=== PATIENT | male | born 1995 | race Caucasian/White ===

== ENCOUNTER 2022-06-10 20:06 | Emergency (ER) | payer OTHER, SELFPAY ==
[2022-06-10 20:23] VITALS: BP 127/77; PULSE 95; RESP 16; TEMP 36.6; O2SAT 97; BMI 30.8
--- NOTE | 2022-06-10 22:37 | ED.RECABL ---
HPI - Recheck/Abnormal Lab/Rx General Chief Complaint: Recheck/Abnormal Lab/Rx Stated Complaint: Rash all over body, Out of meds Time Seen by Provider: 06/10/22 22:37 Source: patient Mode of arrival: Ambulatory Limitations: no limitations History of Present Illness HPI narrative: This is a 26-year-old male with diagnosed celiac disease with history of dermatitis herpetiformis, hypertension, depression anxiety who presents with complaint of worsening rash. Patient states that he is had [facility] is [facility] this by [facility] about the pharmacy has had it on back order. He ran out of medications last Monday, proximally week ago. Since then his rash has been worsening it is become quite intense it is very itchy and painful. He denies fevers or chills. No chest pain, no shortness of breath, no abdominal pain, no nausea or vomiting, no black or bloody stools, diarrhea constipation. He is not having any urinary changes. The rashes continued to spread in his typical of the rash that he has had in the past. He states typically when he is on his dapsone with when 1 or 2 doses the rash is significantly or almost nearly resolved. He has tried Benadryl and hydroxyzine but gets bad nightmares with these so he has been avoiding them. It is become quite painful this evening and he is had trouble sleeping the last 2 nights and presents with assistance. He does have his prescription bottle with and takes dapsone 100 mg daily. Related Data Home Medications Medication Instructions Recorded Confirmed Atarax 25 mg PRN Sleep 06/10/22 Protonix 40 mg DAILY 06/10/22 06/10/22 Prozac 06/10/22 Zyrtec 10 DAILY 06/10/22 amlodipine 5 mg DAILY 06/10/22 06/10/22 bupropion HCl 06/10/22 dapsone 100 mg DAILY 06/10/22 06/10/22 Previous Rx's Medication Instructions Recorded dapsone 100 mg tablet 100 mg PO DAILY #30 tabs 06/10/22 hydrocodone 5 mg-acetaminophen 325 1 tab PO QID PRN pain #7 tabs 06/10/22 mg tablet prednisone 10 mg tablets in a dose See Rx Instructions .Route 06/10/22 pack .COMPLEX #15 ea Allergies Allergy/AdvReac Type Severity Reaction Status Date / Time No Known Drug Allergies Allergy Verified 06/10/22 20:27 Review of Systems Review of Systems ROS Unobtainable: All systems reviewed & are unremarkable except as noted in HPI and below Exam Narrative Exam Narrative: GENERAL: Alert and oriented x three, male in mild distress. HEENT: Head normocephalic, atraumatic, EOMI, pupils reactive, face symmetric, moist mucous membranes NECK: Supple, full range of motion CARDIOVASCULAR: Regular rate and rhythm without murmurs, rubs or gallops. RESPIRATORY: Breath sounds equal bilaterally, no wheezes rales or rhonchi. ABDOMEN: Soft, nontender. Normoactive bowel sounds all 4 quadrants. No guarding or rebound, rigidity, no mass : No CVA tenderness EXTREMITIES: Normal range of motion, no clubbing or edema. Neurovascularly intact NEUROLOGICAL: Cranial nerves II through XII grossly intact. Moving all extremities SKIN: Warm, dry, no petechiae, patient has patchy, small clusters of papular lesions with some of them having small amounts of erythema, occasionally vesicles. Patient does have some excoriation rash is distributed across face, upper torso and extremities and legs. Initial Vital Signs Initial Vital Signs: Vital Signs Temperature 97.9 F 06/10/22 20:23 Pulse Rate 95 H 06/10/22 20:23 Respiratory Rate 16 06/10/22 20:23 Blood Pressure 127/77 06/10/22 20:23 Pulse Oximetry 97 06/10/22 20:23 Oxygen Delivery Method Room Air 06/10/22 20:23 Course Orders Ordered: Discontinued Medications Hydrocodone Bitart/Acetaminophen (Hydrocodone/Acet 5/325 Prepack) 1 bottle MISC SEEINSTR ONE Stop: 06/10/22 22:57 Last Admin: 06/10/22 23:03 Dose: 1 bottle Documented By: BEATRIZ Prednisone (Prednisone 20 Mg Tablet) 60 mg PO NOW ONE Stop: 06/10/22 22:57 Last Admin: 06/10/22 23:03 Dose: 60 mg Documented By: BEATRIZ Vital Signs Vital signs: Vital Signs - 8 hr 06/10/22 23:01 06/10/22 23:09 Pulse Rate 85 78 Respiratory Rate 20 16 Blood Pressure 145/73 H 138/71 Pulse Oximetry 99 100 Oxygen Delivery Method Room Air Room Air MDM - Recheck/Abnormal Lab/Rx MDM Narrative Medical decision making narrative: This is a 26-year-old male who presents with complaint of persistent rash, patient has a history of dermatitis herpetiformis states he was diagnosed with celiac by the DC, he has been on dapsone but there has been issues with being able to fill the medication that has been on back order he would a short-term script for 10 tablets that ran out last Monday and he is not been able to get his new prescription [facility]. Patient has tried hydroxyzine and Benadryl for the itching but these give him nightmares. He states it is becoming increasingly painful. Has not had any fevers, toxic symptoms or other changes. Patient does present with his pill bottle. Discussed with patient will write for prescription he can try to different pharmacy to see if they can fill it. Tonight we will give a dose of prednisone with a short term prednisone script. Discharge Plan Departure Patient Disposition: Home Clinical Impression: Dermatitis herpetiformis Activity Restrictions/Additional Instructions: Please follow-up with your [facility] providers to continue your Dapsone. You can take prednisone until gone. You may take 1-2 tablets of Grethel every 6 hours as needed for pain. Prescription sent to [facility] in [place]. A prescription for your dapsone is printed. Please return for fevers, rapidly worsening symptoms, abdominal pain, vomiting, diarrhea, black or bloody stools or other new or concerning changes. Prescriptions: New dapsone 100 mg tablet 100 mg PO DAILY Qty: 30 0RF prednisone 10 mg tablets,dose pack See Rx Instructions .ROUTE .COMPLEX Qty: 15 0RF Rx Instructions: Please take 5 tablets p.o. x1 day, then 4 tablets p.o. x1 day, then 3 tablets p.o. x1 day, then 2 tablets p.o. x1 day, then 1 tablet p.o. x1 day hydrocodone-acetaminophen 5-325 mg tablet 1 tab PO QID PRN (Reason: pain) Qty: 7 0RF No Action Atarax 25 mg 25 mg PRN (Reason: Sleep) Protonix 40 mg 40 mg DAILY Prozac Zyrtec 10 mg 10 DAILY amlodipine 5 mg 5 mg DAILY bupropion HCl dapsone 100 mg 100 mg DAILY Stand Alone Forms: Patient Portal/API
[2022-06-10 23:01] VITALS: BP 145/73; PULSE 85; RESP 20; O2SAT 99
[2022-06-10] MEDS: predniSONE 20 MG TABLET 60 MG PO (23:03)
[2022-06-10] MEDS: HYDROCODONE/ACET 5/325 PREPACK 1 BOTTLE MISC (23:03)
[2022-06-10 23:09] VITALS: BP 138/71; PULSE 78; RESP 16; O2SAT 100
== END 2022-06-10 23:10 | disposition home or self-care (01) ==
PROVIDERS: Emergency Provider Emergency Medicine
DX: L13.0 Dermatitis herpetiformis (principal)
CPT/HCPCS: 99283

== ENCOUNTER 2024-06-15 17:53 | Emergency (ER) | payer OTHER, SELFPAY ==
[2024-06-15 18:00] VITALS: BP 159/89; PULSE 87; RESP 17; TEMP 36.8; O2SAT 98; BMI 32.5
--- NOTE | 2024-06-15 18:04 | DI.CT.S_ITS ---
PROCEDURE: CT TRAUMA CHEST ABDOMEN PELVIS INDICATIONS: trauma TECHNIQUE: MDCT axial chest images were obtained with IV contrast in the arterial phase. Maximum intensity projections and multiplanar reformats were obtained. MDCT axial abdomen and pelvis images were obtained with IV contrast in the portal venous phase. Multiplanar reformats were obtained. Optional delayed phase scanning may also be obtained Advanced techniques were used to lower patient radiation exposure. COMPARISON: [facility], CT, CT CERVICAL SPINE WO [facility], 06/15/2024, 18:12. [facility], CT, CT HEAD/BRAIN WO CON, 06/15/2024, 18:12. FINDINGS Image Quality: Diagnostic. Chest: Lungs and pleura: No pneumothorax or hemothorax. No pulmonary contusions or lacerations. No solid pulmonary nodule requiring follow-up. Vascular: No dissection or pseudoaneurysm. No incidental central pulmonary embolism. No hemopericardium. Mediastinum: No mediastinum hematoma. No suspicious mass or lymph nodes. No actionable thyroid nodules. Chest wall: Intact clavicles, scapula, and glenohumeral joint. No displaced rib fractures. Thoracic spine: No acute fracture or traumatic subluxation. ABDOMEN and PELVIS: Liver: No laceration or capsular hematoma. The liver is enlarged and demonstrates diffuse fatty infiltration. Gallbladder: Unremarkable. Biliary system: Non-dilated. Pancreas: Unremarkable. Spleen: No laceration or capsular hematoma. Adrenals: No suspicious nodules. Kidneys: No contrast extravasation or hydronephrosis. No solid masses. Vessels and lymph nodes: No pathology lymph nodes by size criteria. No dissection or aneurysm. No retroperitoneal hematoma. Bowel and peritoneum: No suspicious region of mesenteric hemorrhage or hemoperitoneum. No bowel obstruction. Pelvis: Unremarkable bladder. There is a mild fat containing right inguinal hernia. Pelvic ring and femurs: No pelvic ring disruption. No hip fractures. Lumbar spine: No acute fracture or traumatic subluxation. Focal L5-S1 degenerative change is seen. Abdominal wall: No drainable fluid collection or hematoma. IMPRESSION: Negative for liver or spleen laceration or hematoma. Additional findings: Enlarged, fatty infiltrated liver Early L5-S1 degenerative change Mild fat containing right inguinal hernia Dictated by: Pepe Maharaj M.D. on 06/15/2024 at 18:04 Approved by: Pepe Maharaj M.D. on 06/15/2024 at 18:07
--- NOTE | 2024-06-15 18:06 | DI.CT.S_ITS ---
PROCEDURE: CT HEAD/BRAIN WO CON INDICATIONS: Trauma TECHNIQUE: Noncontrast 5 mm thick angled axial sections acquired from the foramen magnum to the vertex, with coronal and sagittal reformats. For radiation dose reduction, the following was used: automated exposure control, adjustment of mA and/or kV according to patient size. COMPARISON: [facility], CT, CT CERVICAL SPINE WO CON, 06/15/2024, 18:12. [facility], CT, CT TRAUMA CHEST ABDOMEN PELVIS, 06/15/2024, 18:12. (Additional prior imaging is not available for review from the archive at the time of this dictation.) FINDINGS: Image quality: Streak artifact can be seen through the skull base. CSF spaces: Basal cisterns are patent. No extra-axial fluid collections. Ventricles are normal in size and shape. Brain: No midline shift. No intracranial mass effect or hemorrhage. John-white matter interface is normal. Skull and face: Calvarium and visualized facial bones are intact, without suspicious lesions. Sinuses: Visualized sinuses and mastoids are clear. IMPRESSION: No acute intracranial hemorrhage is seen. No acute intracranial pathology. Dictated by: Pepe Maharaj M.D. on 06/15/2024 at 17:50 Approved by: Pepe Maharaj M.D. on 06/15/2024 at 17:52
--- NOTE | 2024-06-15 18:06 | DI.CT.S_ITS ---
PROCEDURE: CT CERVICAL SPINE WO CON INDICATIONS: Trauma TECHNIQUE: Noncontrast 3 mm thick sections acquired from the skull base to the T4 level. Sagittal and coronal reformats were then constructed. For radiation dose reduction, the following was used: automated exposure control, adjustment of mA and/or kV according to patient size. COMPARISON: [facility], CT, CT HEAD/BRAIN WO CON, 06/15/2024, 18:12. [facility], CT, CT TRAUMA CHEST ABDOMEN PELVIS, 06/15/2024, 18:12. FINDINGS: Image quality: This examination is somewhat limited by quantum mottle artifact. Bones: No fractures or dislocations. Visualized superior ribs are intact. Soft tissues: Prevertebral soft tissues are normal in thickness. No paravertebral hematomas. No apical pneumothoraces. IMPRESSION: No displaced fracture or traumatic subluxation. Dictated by: Pepe Maharaj M.D. on 06/15/2024 at 17:52 Approved by: Pepe Maharaj M.D. on 06/15/2024 at 17:53
[2024-06-15 18:21] VITALS: BP 135/78; PULSE 85; RESP 19; TEMP 37; O2SAT 99
[2024-06-15 18:24] LABS: Add Manual Diff / Slide Review NO; Basophils Absolute Auto 0 /uL (0-100); Basophils Percent Auto 0.3 % (0-2); Eosinophils Absolute Auto 200 /uL (0-450); Eosinophils Percent Auto 1.3 % (2-4); Hematocrit 44.6 % (41-53); Hemoglobin 15.2 g/dL (13.5-17.5); Lymphocytes Absolute Auto 1700 /uL (1100-4500); Lymphocytes Percent Auto 13.1 % (25-40); Mean Corpuscular Hemoglobin 33.7 PG (26-34); Monocytes Absolute Auto 1200 /uL (0-900); Monocytes Percent Auto 8.9 % (3-14); Neutrophils Absolute Auto 10000 /uL (1500-7000); Neutrophils Percent Auto 76.4 % (50-75); Platelet Count 264 X10^3/uL (150-400); Red Cell Distribution Width 12.1 % (11.6-14.8)
[2024-06-15] MEDS: HYDROMORPHONE 1 MG INJ IV (18:30)
[2024-06-15] MEDS: ONDANSETRON 4 MG/2 ML INJ IV (18:30)
[2024-06-15] MEDS: TET,DIPH,PERTUSS(ACELL),VAC/PF 0.5 ML SYRINGE IM (18:31)
[2024-06-15] MEDS: SODIUM CHLORIDE 0.9% 500 ML 1000 ML IV (18:33)
[2024-06-15 18:35] LABS: Alanine Aminotransferase 207 IU/L (<50); Albumin 5.4 g/dL (3.5-5.0); Albumin Globulin Ratio 1.5 (1.0-2.8); Alkaline Phosphatase 106 U/L (38-126); Aspartate Aminotransferase 180 IU/L (17-59); BUN Creatinine Ratio 16.7 (6-22); Bilirubin Total 1.6 mg/dL (0.2-1.3); Blood Urea Nitrogen 19 mg/dL (9-20); Calcium 10.1 mg/dL (8.4-10.2); Carbon Dioxide 25 mmol/L (22-32); Chloride 102 mmol/L (98-107); Estimated Glomerular Filt Rate > 60 mL/min (>60); Ethanol (ETOH) < 10 mg/dL; Globulin 3.5 g/dL (1.7-4.1); Glucose 107 mg/dL (70-100); HEMOLYSIS < 15 (0-50); Potassium 3.8 mmol/L (3.4-5.1); Sodium 139 mmol/L (137-145); Total Protein 8.9 g/dL (6.3-8.2)
--- NOTE | 2024-06-15 18:39 | ED_ITS ---
HPI - General Adult General Chief complaint: Trauma Stated complaint: arm injury, attending anesthesiologist fell on his arm Time Seen by Provider: 06/15/24 18:04 Source: patient Mode of arrival: Ambulatory History of Present Illness HPI narrative: 28-year-old gentleman with a history of hypertension, depression was trying to load his attending anesthesiologist into the back of his truck. When pushing it up it fell off the ramp landing on him. He tried another approach and it fell off the other side of the ramp landing on him yet again. He presents complaining of elbow pain on the left side he was able to completely extend it. There was a small laceration that is superficial and not intra-articular concerning. He is neurovascularly intact. Complains of mid abdominal pain with a bruising and contusion area the lower left flank. Tender along the lower lumbar area. Lungs are clear minor tenderness with compression of ribs. There was no loss of consciousness, no nausea, vomiting, dyspnea, headache he is otherwise alert and appropriate Related Data Home Medications Medication Instructions Recorded Confirmed Atarax 25 mg PRN Sleep 06/10/22 amlodipine 5 mg tablet 5 mg PO DAILY 06/15/24 06/15/24 bupropion HCl 100 mg tablet,12 hr mg PO DAILY 06/15/24 sustained-release (Wellbutrin SR) cetirizine 10 mg tablet 10 mg PO DAILY 06/15/24 06/15/24 fluoxetine 20 mg tablet mg PO DAILY 06/15/24 pantoprazole 40 mg tablet,delayed 40 mg PO DAILY 06/15/24 06/15/24 release (Protonix) Previous Rx's Medication Instructions Recorded dapsone 100 mg tablet 100 mg PO DAILY #30 tabs 06/10/22 Allergies Allergy/AdvReac Type Severity Reaction Status Date / Time No Known Drug Allergies Allergy Verified 06/15/24 18:21 Review of Systems Review of Systems Narrative: Pertinent positive and negative findings as per HPI Patient History Medical History Depression Hypertension Social History Smoking Status: Current some day smoker Smoking Status: Current some day smoker Exam Initial Vital Signs Initial Vital Signs: Vital Signs Temperature 98.2 F 06/15/24 18:00 Pulse Rate 87 06/15/24 18:00 Respiratory Rate 17 06/15/24 18:00 Blood Pressure 159/89 H 06/15/24 18:00 Pulse Oximetry 98 06/15/24 18:00 Oxygen Delivery Method Room Air 06/15/24 18:00 General: Healthy appearing, in no acute distress. Able to give a complete and coherent history. Well-nourished well-developed HEENT: Moist mucous membranes, normal sclera with reactive pupils, no head abrasions or contusions. Neck: No midline cervical spine tenderness Respiratory: Lungs are clear to auscultation, no wheezing no rales no rhonchi. Full and symmetrical air movement, no contusions, subcutaneous air or tenderness with compression of the ribcage. Cardiac: Regular rate and rhythm no murmurs no bruits Abdomen: Soft, tender along the lower abdomen with abrasion and contusion lower left flank. He does have some tenderness along the lower thoracic and lumbar spine to palpation without obvious bruising or contusion in that area. No rebound or guarding. Skin: Warm and dry, abrasion to the proximal forearm left side, just below the elbow with a shallow 1.5 cm laceration. Neurologic: Grossly neurologically intact with no obvious asymmetries or abnormalities Extremities: Abrasion to the left forearm able to fully extend the left elbow, neurovascularly intact all extremities Psych: Cooperative, appropriate insight and affect Procedures Laceration Repair Left elbow: Time of procedure: 20:47 Site: upper extremity Side (If applicable): left Size (cm): 2 Description: linear and contaminated Depth: simple, single layer Local Anesthetic: lidocaine 1% and with epi Amount of anesthesia used (mL): 3 Pre-repair: wound explored, irrigated extensively and deep structures intact Skin layer closed with: nylon Skin layer suture size: 3-0 Number of sutures: 1 Technique: horizontal mattress Course Orders Ordered: ED Orders 06/15/24 18:04 CT Trauma Chest Abdomen Pelvis Stat 06/15/24 18:06 CT cervical spine wo con Stat CT head/brain wo con Stat 06/15/24 18:10 Complete Blood Count AUTO DIFF Stat Comprehensive Metabolic Panel Stat Ethanol (ETOH) Stat 06/15/24 18:43 XR elbow LT min 3V Stat Discontinued Medications Bacitracin (Bacitracin Oint 0.9 Gm Pckt) 1 applic TOP NOW ONE Stop: 06/15/24 20:35 Last Admin: 06/15/24 20:37 Dose: 1 applic Documented By: CHANCE Diphtheria/Tetanus/Acell Pertussis (Tet,Diph,Pertuss(Acell),Vac/Pf 0.5 Ml Syringe) 0.5 ml IM .ONCE ONE Stop: 06/15/24 18:07 Last Admin: 06/15/24 18:31 Dose: 0.5 ml Documented By: Hydromorphone HCl (Hydromorphone 1 Mg Inj) 1 mg IV NOW ONE Stop: 06/15/24 18:05 Last Admin: 06/15/24 18:30 Dose: 1 mg Documented By: Sodium Chloride (Normal Saline 0.9%) 500 mls @ 1,000 mls/hr IV BOLUS ONE Stop: 06/15/24 18:42 Last Infusion: 06/15/24 19:10 Dose: Infused Documented By: Admin: 06/15/24 18:33 Dose: 1,000 mls/hr Documented By: Ondansetron HCl (Ondansetron 4 Mg/2 Ml Inj) 4 mg IV NOW ONE Stop: 06/15/24 18:05 Last Admin: 06/15/24 18:30 Dose: 4 mg Documented By: Vital Signs Vital signs: Vital Signs - 8 hr 06/15/24 18:00 Temperature 98.2 F Pulse Rate 87 Respiratory Rate 17 Blood Pressure 159/89 H Pulse Oximetry 98 Oxygen Delivery Method Room Air Medical Decision Making Lab Data 06/15/24 18:10 06/15/24 18:10 Labs: Lab Results 06/15/24 Range/Units 18:10 WBC 13.0 H (4.5-11.0) X10^3/uL RBC 4.50 (4.5-5.9) X10^6/uL Hgb 15.2 (13.5-17.5) g/dL Hct 44.6 (41-53) % MCV 99.0 (80-100) fL MCH 33.7 (26-34) PG MCHC 34.0 (30-36) % RDW 12.1 (11.6-14.8) % Plt Count 264 (150-400) X10^3/uL Neut % (Auto) 76.4 H (50-75) % Lymph % (Auto) 13.1 L (25-40) % Beadle % (Auto) 8.9 (3-14) % Eos % (Auto) 1.3 L (2-4) % Baso % (Auto) 0.3 (0-2) % Neut # (Auto) 58101 H (8217-6520) /uL Lymph # (Auto) 1700 (0121-2550) /uL Beadle # (Auto) 1200 H (0-900) /uL Eos # (Auto) 200 (0-450) /uL Baso # (Auto) 0 (0-100) /uL Sodium 139 (137-145) mmol/L Potassium 3.8 (3.4-5.1) mmol/L Chloride 102 (98-107) mmol/L Carbon Dioxide 25 (22-32) mmol/L BUN 19 (9-20) mg/dL Creatinine 1.14 (0.66-1.25) mg/dL Estimated GFR > 60 (>60) mL/min BUN/Creatinine Ratio 16.7 (6-22) Glucose 107 H (70-100) mg/dL Calcium 10.1 (8.4-10.2) mg/dL Total Bilirubin 1.6 H (0.2-1.3) mg/dL AST 180 H (17-59) IU/L ALT 207 H (<50) IU/L Alkaline Phosphatase 106 (38-126) U/L Total Protein 8.9 H (6.3-8.2) g/dL Albumin 5.4 H (3.5-5.0) g/dL Globulin 3.5 (1.7-4.1) g/dL Albumin/Globulin Ratio 1.5 (1.0-2.8) Ethyl Alcohol < 10 ( - 10) mg/dL [facility] Narrative Medical decision making narrative: CC: Standby trauma called, rd ramos fell off a ramp landing on his lower abdomen and torso 2 times today Complicating co-morbidities: Poor planning when loading his rd ramos into his truck, hypertension, depression, reflux Data collected from: patient Differential considered: Left elbow or forearm fracture, thoracic injury from blunt trauma, pelvic and lower abdominal injury from blunt trauma, solid organ trauma Exam documented above, pertinent findings include: Patient was alert and appropriate and able to laugh about his to ?attending anesthesiologist attacks? today. No obvious abnormalities to the thorax slightly tender without bruising. No respiratory distress. Tender along the lower abdomen with moderate bruising to the left flank concerning for intra-abdominal injury and bleeding. No lower extremity injury. No head or neck injury Lab Test results independently reviewed as above. Pertinent findings: CBC shows mild leukocytosis at 13.0 minimal left shift, no anemia Chemistries show normal renal function. Bilirubin is slightly elevated at 1.6, AST at 180 ALT at 207 -no labs are available for comparison Alcohol level is undetectable Imaging studies independently reviewed: CT scan of the head is unremarkable CT scan of the cervical spine is unremarkable CT chest abdomen and pelvis is unremarkable specifically no spleen or liver laceration Elbow x-ray is reassuringly normal Treatments: Parenteral Toradol, Zofran, Tdap is updated, 1 L of saline . At time of discharge, he is given a dose of Toradol and a single Percocet Discussion: 28-year-old young man who had a heavy long more land on him twice today. He has an abrasion small laceration just under the left elbow. Laceration is repaired with single horizontal mattress suture. CT scans show no evidence of fractures, internal injury. The large flank contusion on the left is superficial, there was no evidence of splenic laceration. We did discuss his elevated liver enzymes. He is aware that he has a fatty liver and was aware that liver enzymes were elevated. This led to a discussion of primary care issues such as actually a dressing his blood pressure and make sure he is taking medications, following up with his primary care physician and looking at diet and exercise changes that are causing fatty liver the age of 28. Compelling reasons to consider taking care of himself sooner rather than later were discussed in detail. Encouraged him to follow up with his [facility] doctor, there is a new clinic that has open in [place]. Discussed pain management. Anticipate that he is going to hurt more over the next 36 hours. Ibuprofen and Tylenol are recommended, he is given a small prescription for Percocet to augment this along with instructions on avoiding constipation and awareness of addiction. There was no indication for further workup or hospitalization and he is safe for discharge Discharge Plan Departure Patient Disposition: Home Clinical Impression: Contusion of left flank Elbow laceration Qualifiers: Encounter type: initial encounter Laterality: left Qualified Code(s): S51.012A - Laceration without foreign body of left elbow, initial encounter Activity Restrictions/Additional Instructions: Thank you for coming in today CT scans did not show any bony injury or internal bleeding. You are going to be sore over the next couple of days. Making sure that you do get up and move around actually does help significantly in getting you to feeling better faster Using 400 mg of ibuprofen (2 [id number] pills) and 1 Tylenol every 6 hours can be very helpful in controlling pain. For severe pain you can use to ibuprofen and 1 Percocet. Percocet is a narcotic, we will cause constipation so make sure that you are taking a stool softener and use sparingly as needed The small laceration on your left elbow we will need to have the stitch removed on or about June 25. Please keep a small dressing over this to avoid irritating it or introducing infection Your lab work did show elevated liver enzymes and you said you are aware of fatty liver diagnosis. Your blood pressure was elevated throughout your emergency room stay. Paying attention to chronic medical problems at this stage in your life is going to lead to dramatic benefits to you as you age. I would strongly recommend you talk to your doctor about your blood pressure, metabolic status discussion of fatty liver and overall health. If you find that you are getting worse or develop any new symptoms, please feel free to return to the emergency department for further evaluation. Prescriptions: No Action Atarax 25 mg 25 mg PRN (Reason: Sleep) dapsone 100 mg tablet 100 mg PO DAILY Qty: 30 0RF cetirizine 10 mg Tablet 10 mg PO DAILY amlodipine 5 mg Tablet 5 mg PO DAILY bupropion HCl [Wellbutrin SR] 100 mg Tablet Sustained-Release 12 Hr PO DAILY pantoprazole [Protonix] 40 mg Tablet,Delayed Release (Dr/Ec) 40 mg PO DAILY fluoxetine 20 mg Tablet PO DAILY Referrals: Miscellaneous,Doctor, MD [Primary Care Provider] - Stand Alone Forms: Patient Portal/API/Survey
--- NOTE | 2024-06-15 18:43 | DI.RAD.S_ITS ---
PROCEDURE: XR ELBOW LT MIN 3V INDICATIONS: Pain to left elbow TECHNIQUE: 3 views of the elbow were acquired. COMPARISON: [facility], CT, CT HEAD/BRAIN WO [facility], 06/15/2024, 18:12. [facility], CT, CT TRAUMA CHEST ABDOMEN PELVIS, 06/15/2024, 18:12. [facility], CT, CT CERVICAL SPINE WO [facility], 06/15/2024, 18:12. FINDINGS: Bones: No fractures or dislocations. No suspicious bony lesions. Soft tissues: No elbow joint effusion. Proximal forearm soft tissue irregularity and soft tissue gas can be seen. No radiopaque foreign bodies are seen. IMPRESSION: No displaced fracture or joint effusion seen on this plain film study. Mild soft tissue irregularity seen, consistent with soft tissue laceration. No radiopaque foreign body is seen. Dictated by: Pepe Maharaj M.D. on 06/15/2024 at 18:46 Approved by: Pepe Maharaj M.D. on 06/15/2024 at 18:47
--- NOTE | 2024-06-15 19:13 | PC.NURSE ---
Laceration to left elbow cleansed. Pt tolerated well.
[2024-06-15 20:30] VITALS: BP 149/78; PULSE 98; RESP 18; O2SAT 95
[2024-06-15] MEDS: BACITRACIN OINT 0.9 GM PCKT 1 APPLIC TOP (20:37)
[2024-06-15] MEDS: KETOROLAC 30 MG/ML VIAL 15 MG IV (20:50)
[2024-06-15] MEDS: OXYCODONE/APAP 5/325 PREPACK 1 BOTTLE MISC (20:51)
[2024-06-15] MEDS: OXYCODONE/ACETAMINOPHEN 5/325 TABLET 1 TAB PO (20:51)
== END 2024-06-15 20:55 | disposition home or self-care (01) ==
PROVIDERS: Emergency Medicine; Emergency Provider Emergency Medicine
DX: S30.1XXA Contusion of abdominal wall, initial encounter (principal); S51.012A Laceration without foreign body of left elbow, initial encounter; X58.XXXA Exposure to other specified factors, initial encounter; Z23 Encounter for immunization
CPT/HCPCS: 12001; 70450; 71275; 72125; 73080; 74177; 80053; 80320; 85025; 90471; 96361; 96374; 96375; 99284; 90715; J1171; J1885; J2405; Q9967